=== PATIENT | male | born 1950 | race African-American/Black ===

== ENCOUNTER 2016-12-29 17:44 | Emergency (ER) | payer BC ==
[2016-12-29 16:08] LABS: BASOPHILS 0.4 %; BASOPHILS ABSOLUTE 0.02 10/3/uL (0.0-0.16); EOSINOPHILS 3.1 %; EOSINOPHILS ABSOLUTE 0.14 10/3/uL (0.0-0.53); ER CBC TAT 0 Hrs 05 Mins; HEMATOCRIT 42.5 % (40.0-51.0); HEMOGLOBIN 14.7 g/dL (13.6-17.8); IMMATURE GRANULOCYTES 0.4 %; IMMATURE GRANULOCYTES ABSOLUTE 0.02 10/3/uL (0.0-0.11); LYMPHOCYTES 24.9 %; LYMPHOCYTES ABSOLUTE 1.12 10/3/uL (0.67-4.30); MANUAL DIFF NO %; MEAN CORPUS HGB CONC 34.6 g/dL (32.0-36.0); MEAN CORPUSCULAR HEMOGLOB 28.7 pg (26.0-34.0); MEAN PLATELET VOLUME 10.1 fL (9.2-13.0); MONOCYTES 7.8 %; MONOCYTES ABSOLUTE 0.35 10/3/uL (0.21-1.20); NEUTROPHILS 63.4 %; NEUTROPHILS ABSOLUTE 2.84 10/3/uL (2.02-8.40); PLATELET COUNT 191 10/3/uL (150-400); RBC DISTRIBUTION WIDTH 14.8 % (12.0-16.0); RED CELL COUNT 5.12 10/6/uL (4.7-6.1); WHITE BLOOD CELLS 4.5 10/3/uL (4.5-10.5)
[2016-12-29 16:14] LABS: PARTIAL THROMBO TIME 24.7 SEC (22.5-37.2); PROTIME (NOT ORD) 13.3 SEC (12.0-14.5)
[2016-12-29 16:24] LABS: ALBUMIN 3.1 G/DL (3.5-5.0); ALKALINE PHOSPHATASE 93 U/L (45-117); BUN (BLOOD UREA NITROGEN) 19 MG/DL (6-23); CHEST PAIN PROFILE TAT 0 Hrs 21 Mins; CHLORIDE, SERUM 98 MMOL/L (96-112); CO2 (CARBON DIOXIDE) 34 MMOL/L (24-34); CREATININE 1.27 MG/DL (0.70-1.30); DIRECT BILIRUBIN 0.2 MG/DL (0.0-0.4); GFR AFRICAN AMERICAN 67 ML/MIN (>=60); GFR NON AFRICAN AMERICAN 58 ML/MIN (>=60); INDIRECT BILIRUBIN(NOT ORDER) 0.5 MG/DL (0.1-0.9); POTASSIUM, SERUM 3.6 MMOL/L (3.5-5.3); SGOT(AST) 11 U/L (5-40); SGPT(ALT) 15 U/L (5-65); SODIUM, SERUM 137 MMOL/L (135-148); TOTAL BILIRUBIN 0.7 MG/DL (0-1.2); TOTAL PROTEIN 7.2 G/DL (6.0-8.5); TROPONIN I <0.02 NG/ML (<0.05)
[2016-12-29 16:25] LABS: CPK 55 U/L (0-200); GLUCOSE, SERUM 415 MG/DL (60-99)
[~2016-12-29 17:44] MED LIST: ASA5GR PO; ASAB PO; BENTYL10 PO; BENTYL20 PO; BETAPACE80 PO; BUM1 PO; BUM2 PO; CIP5 PO; COLCH6 PO; CORDARONE PO; COREG25 PO; COREG6 PO; DEMA100 PO; ELIQUIS 5 MG TAB5 MG PO; GLUCOPHAGE1000 MG PO; GLUCPH PO; HUMALOGMIX SC; HUMALOGMIX SQ; HUMULIN SC; IMDUR30 PO; INDO50 PO; INSNOV7030 SC; IRON325 MG PO; K-TABS10 MEQ PO; KLOR-CON 1010 MEQ PO; LAN125 PO; LIPITOR40 PO; LORT7 PO; MAGOX4 PO; NAP500 PO; NITROQUICK0.4 MG SL; NITROSTAT0.4 MG SL; NORCO1 TA1 PO; NORCO1 TA2 PO; NORCO1 TAB PO; NORV10 PO; PLAVIX PO; PRAVAC PO; PRILO PO; PRIN5 PO; SENTAB PO; TRIBENZOR PO; ULTRAM50 PO; XARELTO10 MG PO; XARELTO20 MG PO; Z10 PO; Z5 PO; ZESTRIL5 MG PO; ZOFRAN ODT4 MG PO; [UNRECOGNIZED DRUG - CODE]; [UNRECOGNIZED DRUG - OTHER] PO
[2017-02-26] MEDS ORDERED: LIPITOR40 PO (21:49)
[2017-02-26] MEDS ORDERED: IMDUR30 PO (21:50)
[2017-02-26] MEDS ORDERED: PRIN10 PO (21:50)
[2017-02-26] MEDS ORDERED: NORCO1 TA2 PO (21:51)
[2017-02-26] MEDS ORDERED: BETAPACE80 PO (21:53)
[2017-02-26] MEDS ORDERED: DEMA100 PO (21:53)
[2017-02-26] MEDS ORDERED: BENTYL20 PO (21:54)
[2017-02-26] MEDS ORDERED: ASAB PO (21:54)
[2017-02-26] MEDS ORDERED: NITROSTAT0.4 MG PO (21:54)
[2017-02-26] MEDS ORDERED: INSNOV7030 SC (21:57)
== END 2016-12-29 20:32 | disposition home or self-care (01) ==
LOC: ER 17:44
PROVIDERS: Emergency Medicine
DX: L29.9 Pruritus, unspecified (principal); I48.91 Unspecified atrial fibrillation; L30.9 Dermatitis, unspecified; R73.9 Hyperglycemia, unspecified; I11.0 Hypertensive heart disease with heart failure; I50.9 Heart failure, unspecified; E66.01 Morbid (severe) obesity due to excess calories; Z79.82 Long term (current) use of aspirin; Z79.899 Other long term (current) drug therapy; Z79.4 Long term (current) use of insulin
CPT/HCPCS: 80048; 80076; 82550; 82962; 83735; 84484; 85025; 85610; 85730; 96374; 96375; 99283; A9270-GY; J1170; J1200